=== PATIENT | female | born 1980 | race Caucasian/White ===

== ENCOUNTER 2023-11-28 16:49 | Emergency (ER) | payer OTHER ==
[2023-11-28 16:58] VITALS: BP 120/77; PULSE 80; RESP 20; TEMP 98.4; BMI 21.7
[2023-11-28 18:37] LABS: BASO % 0.5 % (0-2.0); EOS % 0.8 % (0-4.5); HEMATOCRIT 41.3 % (32.4-45.2); HEMOGLOBIN 14.3 GM/dL (10.7-15.3); LYMPH % 28.3 % (8-40); MCH 35.2 pg (25.7-33.7); MCHC 34.5 g/dl (32.0-36.0); MEAN PLT VOLUME 8.9 fl (7.5-11.1); MONO % 6.5 % (3.8-10.2); NEUT % 63.9 % (42.8-82.8); PLATELET COUNT 316 10^3/uL (134-434); RBC 4.05 M/mm3 (3.60-5.2); RDW 13.8 % (11.6-15.6); WHITE BLOOD COUNT 6.9 K/mm3 (4.0-10.0)
[2023-11-28] MEDS: SODIUM CHLORIDE 0.9% 500 ML INFUS.BAG IV ONE (18:59)
[2023-11-28 19:04] LABS: POTASSIUM 3.5 mmol/L (3.5-5.1)
[2023-11-28 19:04] LABS: EPI CELLS >36 /uL (0-25.1); HCG,QUALITATIVE URINE Negative; HYALINE CASTS 1 /uL (0-3.1); PH,URINE 6.5 (5.0-8.0); URINE APPEARANCE CLOUDY; URINE BACTERIA 3358 /uL (0-1359); URINE BILIRUBIN NEGATIVE (NEGATIVE); URINE COLOR YELLOW; URINE GLUCOSE (UA) NEGATIVE (NEGATIVE); URINE KETONE NEGATIVE (NEGATIVE); URINE LEUK ESTERASE 2+ (NEGATIVE); URINE NITRITE NEGATIVE (NEGATIVE); URINE PROTEIN NEGATIVE (NEGATIVE); URINE RBC 7 /uL (0-23.9); URINE WBC 190 /uL (0-25.8)
[2023-11-28 19:06] LABS: CALCIUM 8.8 mg/dL (8.5-10.1)
[2023-11-28 19:07] LABS: ALBUMIN 3.8 g/dl (3.4-5.0); BLOOD UREA NITROGEN 6.4 mg/dL (7-18)
[2023-11-28 19:09] LABS: COCAINE, UR NEGATIVE (NEGATIVE); OPIATES, URI NEGATIVE (NEGATIVE)
[2023-11-28 19:10] LABS: METHADONE, UR NEGATIVE (NEGATIVE); URINE BARBITURATES NEGATIVE (NEGATIVE)
[2023-11-28 19:11] LABS: PHENCYCLIDINE,URINE NEGATIVE (NEGATIVE); URINE AMPHETAMINES NEGATIVE (NEGATIVE); URINE BENZODIAZEPINES POSITIVE (NEGATIVE)
[2023-11-28 19:11] LABS: BILIRUBIN,TOTAL 0.6 mg/dL (0.2-1); CREATININE 0.6 mg/dL (0.55-1.3); TOT PROT 6.8 g/dl (6.4-8.2)
[2023-11-28 19:17] LABS: MAGNESIUM 2.1 mg/dL (1.8-2.4)
[2023-11-28] MEDS ORDERED: METOCLOPRAMIDE HCL INJECTION 10 MG/2 ML VIAL ONE (19:37)
[2023-11-28] MEDS ORDERED: CEFTRIAXONE 1 GM/50 ML BAG ONE (19:37)
[2023-11-28] MEDS: LORazepam 2 MG/ML SDV VIAL IM ONE (19:46)
[2023-11-28] MEDS: CEFTRIAXONE 1,000 MG in DEXTROSE 5%-WATER - 50 ML IVPB ONE (19:46)
[2023-11-28] MEDS: METOCLOPRAMIDE HCL INJECTION 10 MG/2 ML VIAL IVPB ONE (19:46)
== END 2023-11-28 20:40 | disposition home or self-care (01) ==
LOC: JER 16:49
PROC: 3E03329 Introduction of Other Anti-infective into Peripheral Vein, Percutaneous Approach (ICD-10-PCS; principal; 2023-11-28)
PROC: 3E030GC Introduction of Other Therapeutic Substance into Peripheral Vein, Open Approach (ICD-10-PCS; 2023-11-28)
PROC: 3E030GC Introduction of Other Therapeutic Substance into Peripheral Vein, Open Approach (ICD-10-PCS; 2023-11-28)
DX: F10.939 Alcohol use, unspecified with withdrawal, unspecified (principal); R56.9 Unspecified convulsions; R45.1 Restlessness and agitation; R11.2 Nausea with vomiting, unspecified; R44.0 Auditory hallucinations; R44.1 Visual hallucinations; R10.13 Epigastric pain; R06.02 Shortness of breath
CPT/HCPCS: 36415; 71046-TC-FY; 80053; 80307; 81003; 83690; 83735; 84484; 84703; 85025; 87086; 93005; 93010; 96365; 96375; 99285-25

== ENCOUNTER 2024-01-24 21:49 | Inpatient (IN) | payer OTHER ==
[2024-01-24] MEDS ORDERED: diazePAM CARPU-JECT 10 MG/2 ML DISP.SYRIN ONE (23:25)
[2024-01-24 23:55] LABS: BASO % 0.7 % (0-2.0); EOS % 2.9 % (0-4.5); HEMATOCRIT 39.6 % (32.4-45.2); HEMOGLOBIN 13.1 GM/dL (10.7-15.3); LYMPH % 42.4 % (8-40); MCH 34.8 pg (25.7-33.7); MCHC 33.2 g/dl (32.0-36.0); MEAN CELL VOLUME 104.9 fl (80-96); MEAN PLT VOLUME 7.9 fl (7.5-11.1); MONO % 9.1 % (3.8-10.2); NEUT % 44.9 % (42.8-82.8); PLATELET COUNT 217 10^3/uL (134-434); RBC 3.77 M/mm3 (3.60-5.2); RDW 13.6 % (11.6-15.6); WHITE BLOOD COUNT 5.5 K/mm3 (4.0-10.0)
[2024-01-24 23:56] LABS: EPI CELLS 21 /uL (0-25.1); HYALINE CASTS 0 /uL (0-3.1); PH,URINE 6.5 (5.0-8.0); URINE APPEARANCE CLEAR; URINE BACTERIA 492 /uL (0-1359); URINE BILIRUBIN NEGATIVE (NEGATIVE); URINE COLOR YELLOW; URINE GLUCOSE (UA) NEGATIVE (NEGATIVE); URINE KETONE NEGATIVE (NEGATIVE); URINE LEUK ESTERASE TRACE (NEGATIVE); URINE NITRITE NEGATIVE (NEGATIVE); URINE PROTEIN NEGATIVE (NEGATIVE); URINE RBC 5 /uL (0-23.9); URINE WBC 22 /uL (0-25.8)
[2024-01-24] MEDS: diazePAM CARPU-JECT 10 MG/2 ML DISP.SYRIN IVPUSH ONE (23:59)
[2024-01-24] MEDS: LACTATED RINGERS SOLUTION 1000 ML INFUS.BAG IV ONE ×2 (23:59)
[2024-01-25] MEDS ORDERED: FOLIC ACID 1 MG TABLET (FP) ONE
[2024-01-25] MEDS ORDERED: THIAMINE 100 MG TABLET ONE
[2024-01-25 00:01] LABS: INR 0.94 (0.83-1.09); PROTHROMBIN TIME (PATIENT) 10.6 SEC (9.7-13.0)
[2024-01-25 00:04] LABS: ACTIVATED PTT 32.7 SECONDS (25.2-36.5)
[2024-01-25] MEDS: FOLIC ACID 1 MG TABLET (FP) PO ONE (00:13)
[2024-01-25] MEDS: THIAMINE 100 MG TABLET PO ONE (00:13)
[2024-01-25 00:15] LABS: POTASSIUM 3.7 mmol/L (3.5-5.1)
[2024-01-25 00:18] LABS: CALCIUM 8.5 mg/dL (8.5-10.1)
[2024-01-25 00:19] LABS: MAGNESIUM 2.1 mg/dL (1.8-2.4)
[2024-01-25 00:22] LABS: CREATININE 0.5 mg/dL (0.55-1.3)
[2024-01-25 00:23] LABS: BILIRUBIN,TOTAL 0.5 mg/dL (0.2-1); TOT PROT 7.1 g/dl (6.4-8.2)
[2024-01-25 01:13] LABS: HIV INTERPRETATION NEGATIVE (NEGATIVE)
[2024-01-25] MEDS ORDERED: LORazepam 1 MG TABLET PO PRN (03:08)
[2024-01-25] MEDS ORDERED: LORazepam 1 MG TABLET PO ONE (03:08)
[2024-01-25] MEDS ORDERED: ONDANSETRON 4 MG/2 ML VIAL IVPUSH PRN (03:44)
[2024-01-25] MEDS: LORazepam 1 MG TABLET PO ONE (03:49)
[2024-01-25] MEDS: SODIUM CHLORIDE 1,000 ML IV SCH (03:50)
[2024-01-25] MEDS: SIMETHICONE 80 MG TAB.CHEW (FP) PO ONE (03:54)
[2024-01-25 05:09] VITALS: BMI 23.4
[2024-01-25] MEDS: LORazepam 0.5 MG TABLET PO SCH (06:02)
[2024-01-25] MEDS ORDERED: SIMETHICONE 80 MG TAB.CHEW (FP) PO PRN (07:45)
[2024-01-25 08:07] LABS: HEMATOCRIT 34.8 % (32.4-45.2); MCH 35.6 pg (25.7-33.7); MCHC 34.5 g/dl (32.0-36.0); MEAN CELL VOLUME 103.4 fl (80-96); MEAN PLT VOLUME 8.5 fl (7.5-11.1); PLATELET COUNT 188 10^3/uL (134-434); RBC 3.37 M/mm3 (3.60-5.2); RDW 13.7 % (11.6-15.6); WHITE BLOOD COUNT 4.7 K/mm3 (4.0-10.0)
[2024-01-25 08:23] LABS: POTASSIUM 3.7 mmol/L (3.5-5.1)
[2024-01-25 08:26] LABS: ALBUMIN 3.3 g/dl (3.4-5.0); BLOOD UREA NITROGEN 5.8 mg/dL (7-18); CALCIUM 8.2 mg/dL (8.5-10.1); MAGNESIUM 1.7 mg/dL (1.8-2.4)
[2024-01-25 08:29] LABS: CREATININE 0.4 mg/dL (0.55-1.3)
[2024-01-25 08:31] LABS: BILIRUBIN,TOTAL 0.7 mg/dL (0.2-1); TOT PROT 5.7 g/dl (6.4-8.2)
[2024-01-25] MEDS: THIAMINE HCL 200 MG/2 ML VIAL IVPB SCH (09:50)
[2024-01-25] MEDS: ENOXAPARIN NA (PORCINE) 40 MG/0.4 ML DISP.SYRIN SQ SCH (09:50)
[2024-01-25] MEDS: FOLIC ACID 1 MG TABLET (FP) PO SCH (09:50)
[2024-01-25] MEDS ORDERED: chlordiazePOXIDE HCL 25 MG CAPSULE PO PRN (10:32)
[2024-01-25] MEDS: chlordiazePOXIDE HCL 25 MG CAPSULE PO SCH (11:44)
[2024-01-25] MEDS: levETIRAcetam 250 MG TABLET PO SCH (11:46)
[2024-01-25] MEDS: MAGNESIUM 1GM/D5W 100ML - 100 ML IVPB IVPB ONE (11:46)
[2024-01-25] MEDS: MULTIVITAMINS (DAILY MVI) TABLET (FP) PO SCH (18:08)
[2024-01-25 18:49] VITALS: RESP 18
[2024-01-25] MEDS: THIAMINE 100 MG TABLET PO SCH (21:26)
[2024-01-26] MEDS ORDERED: LORazepam 1 MG TABLET PO SCH (05:00)
[2024-01-26] MEDS: FOLIC ACID 1 MG TABLET (FP) PO SCH (10:03)
[2024-01-26] MEDS: MAGNESIUM SULF 50% (8.12 MEQ/2 ML-1 GM VIAL) IVPB ONE (16:24)
[2024-01-27] MEDS ORDERED: LORazepam 0.5 MG TABLET PO PRN
[2024-01-27] MEDS: MELATONIN 1 MG TABLET PO ONE (04:01)
[2024-01-27] MEDS: chlordiazePOXIDE HCL 25 MG CAPSULE PO SCH (04:07)
[2024-01-27] MEDS ORDERED: LORazepam 0.5 MG TABLET PO SCH (05:00)
[2024-01-27 14:41] VITALS: BP 106/55; PULSE 58; TEMP 98
[2024-01-28] MEDS ORDERED: chlordiazePOXIDE HCL 10 MG CAPSULE PO PRN
[2024-01-28] MEDS ORDERED: LORazepam 0.5 MG TABLET PO ONE (05:00)
[2024-01-28] MEDS ORDERED: chlordiazePOXIDE HCL 10 MG CAPSULE PO SCH (05:00)
[2024-01-29] MEDS ORDERED: chlordiazePOXIDE HCL 10 MG CAPSULE PO SCH (05:00)
[2024-01-30] MEDS ORDERED: chlordiazePOXIDE HCL 10 MG CAPSULE PO ONE (05:00)
== END 2024-01-27 15:39 | disposition home or self-care (01) | DRG 775 ==
LOC: JER 21:49 → JERBED 01-25 01:57 → OBSVTOIN 01-25 03:03 → J4S 01-25 03:13
PROVIDERS: ADMIT Internal Medicine
DX: F10.230 Alcohol dependence with withdrawal, uncomplicated (principal); F10.220 Alcohol dependence with intoxication, uncomplicated; R55 Syncope and collapse; E83.42 Hypomagnesemia; R56.9 Unspecified convulsions
CPT/HCPCS: 0241U-QW; 36415; 70450-TC; 71045-TC-FY; 72125-TC; 80053; 80307; 81003; 82962; 83690; 83735; 84100; 84484; 84703; 85025; 85027; 85610; 85730; 87086; 87389; 93005; 93010; 99285-25; G0378

== ENCOUNTER 2024-01-31 12:49 | Inpatient (IN) | payer OTHER ==
[2024-01-31] MEDS ORDERED: chlordiazePOXIDE HCL 25 MG CAPSULE ONE (14:27)
[2024-01-31 14:31] LABS: BASO % 0.6 % (0-2.0); EOS % 1.7 % (0-4.5); HEMATOCRIT 35.5 % (32.4-45.2); HEMOGLOBIN 12.3 GM/dL (10.7-15.3); LYMPH % 28.2 % (8-40); MCH 35.3 pg (25.7-33.7); MCHC 34.6 g/dl (32.0-36.0); MONO % 9.3 % (3.8-10.2); NEUT % 60.2 % (42.8-82.8); PLATELET COUNT 179 10^3/uL (134-434); RBC 3.48 M/mm3 (3.60-5.2); RDW 13.3 % (11.6-15.6); WHITE BLOOD COUNT 6.2 K/mm3 (4.0-10.0)
[2024-01-31] MEDS: chlordiazePOXIDE HCL 25 MG CAPSULE PO ONE (14:33)
[2024-01-31 14:39] LABS: INR 0.88 (0.83-1.09); PROTHROMBIN TIME (PATIENT) 10.2 SEC (9.7-13.0)
[2024-01-31 14:41] LABS: ACTIVATED PTT 29.1 SECONDS (25.2-36.5)
[2024-01-31 14:51] LABS: POTASSIUM 4.2 mmol/L (3.5-5.1)
[2024-01-31 14:53] LABS: ALBUMIN 3.7 g/dl (3.4-5.0); BLOOD UREA NITROGEN 6.4 mg/dL (7-18); CALCIUM 9.1 mg/dL (8.5-10.1); MAGNESIUM 2.1 mg/dL (1.8-2.4)
[2024-01-31 14:56] LABS: CREATININE 0.6 mg/dL (0.55-1.3)
[2024-01-31 14:57] LABS: BILIRUBIN,TOTAL 0.4 mg/dL (0.2-1); PHOSPHOROUS 4.2 mg/dL (2.5-4.9); TOT PROT 6.8 g/dl (6.4-8.2)
[2024-01-31 15:09] LABS: LACTIC ACID 2.6 mmol/L (0.4-2.0)
[2024-01-31] MEDS ORDERED: FOLIC ACID INJECTION - 1 MG, THIAMINE HCL 100 MG, MULTIVIT INJECTION ADULT 10 ML in SOD... IVPB ONE (15:17)
[2024-01-31] MEDS: DEXTROSE 5%-LACTATED RINGERS 1,000 ML IV SCH (15:30)
[2024-01-31] MEDS: chlordiazePOXIDE HCL 25 MG CAPSULE PO SCH (21:51)
[2024-01-31] MEDS: levETIRAcetam 250 MG TABLET PO SCH (21:51)
[2024-01-31] MEDS: HEPARIN NA (PORCINE) 5,000 UNITS/ML 1ML VIAL SQ SCH (21:57)
[2024-02-01 03:30] VITALS: BMI 25.7
[2024-02-01 06:41] VITALS: RESP 18
[2024-02-01 07:34] LABS: BASO % 0.5 % (0-2.0); EOS % 2.5 % (0-4.5); HEMATOCRIT 33.2 % (32.4-45.2); HEMOGLOBIN 11.2 GM/dL (10.7-15.3); LYMPH % 38.3 % (8-40); MCH 34.9 pg (25.7-33.7); MCHC 33.6 g/dl (32.0-36.0); MEAN CELL VOLUME 103.8 fl (80-96); MEAN PLT VOLUME 9.6 fl (7.5-11.1); MONO % 11.3 % (3.8-10.2); NEUT % 47.4 % (42.8-82.8); PLATELET COUNT 151 10^3/uL (134-434); RDW 12.5 % (11.6-15.6); WHITE BLOOD COUNT 5.6 K/mm3 (4.0-10.0)
[2024-02-01 07:40] LABS: POTASSIUM 3.3 mmol/L (3.5-5.1)
[2024-02-01 07:42] LABS: CALCIUM 8.1 mg/dL (8.5-10.1)
[2024-02-01 07:46] LABS: CREATININE 0.5 mg/dL (0.55-1.3)
[2024-02-01] MEDS: chlordiazePOXIDE HCL 25 MG CAPSULE PO PRN (08:51)
[2024-02-01] MEDS: POTASSIUM CHLORIDE ORAL LIQUID 20 MEQ/15 ML PO ONE ×2 (09:32→11:08)
[2024-02-01] MEDS: THIAMINE 100 MG TABLET PO SCH (09:32)
[2024-02-01] MEDS: FOLIC ACID 1 MG TABLET (FP) PO SCH (09:33)
[2024-02-01] MEDS: MULTIVITAMINS (DAILY MVI) TABLET (FP) PO SCH (09:33)
[2024-02-01] MEDS ORDERED: SODIUM CHLORIDE 1,000 ML IV SCH (14:00)
[2024-02-01 15:15] VITALS: BP 121/53; PULSE 87; TEMP 98.1
[2024-02-01 17:56] LABS: LACTIC ACID 2.1 mmol/L (0.4-2.0)
== END 2024-02-01 17:12 | disposition left against medical advice (07) | DRG 770 ==
LOC: JER 12:49 → JERBED 16:57 → J4W 20:38
PROVIDERS: ADMIT Internal Medicine; ATTEND Internal Medicine
DX: F10.230 Alcohol dependence with withdrawal, uncomplicated (principal); R56.9 Unspecified convulsions; E87.21 Acute metabolic acidosis; Y90.7 Blood alcohol level of 200-239 mg/100 ml
CPT/HCPCS: 36415; 70450-TC; 72125-TC; 80048; 80053; 80307; 82962; 83605; 83735; 84100; 84703; 85025; 85610; 85730; 86850; 86900; 86901; 93005; 93010; 99285-25; J1644

== ENCOUNTER 2024-02-10 21:33 | Emergency (ER) | payer OTHER ==
[2024-02-10 21:37] VITALS: BMI 23.4
[2024-02-10 22:23] LABS: BASO % 0.9 % (0-2.0); EOS % 2.9 % (0-4.5); HEMATOCRIT 38.2 % (32.4-45.2); HEMOGLOBIN 13.2 GM/dL (10.7-15.3); LYMPH % 39.8 % (8-40); MCH 35.4 pg (25.7-33.7); MCHC 34.6 g/dl (32.0-36.0); MEAN CELL VOLUME 102.4 fl (80-96); MEAN PLT VOLUME 7.7 fl (7.5-11.1); MONO % 7.8 % (3.8-10.2); NEUT % 48.6 % (42.8-82.8); PLATELET COUNT 297 10^3/uL (134-434); RBC 3.73 M/mm3 (3.60-5.2); RDW 13.4 % (11.6-15.6); WHITE BLOOD COUNT 6.4 K/mm3 (4.0-10.0)
[2024-02-10] MEDS ORDERED: MAG HYDROX/AL HYDROX/SIMETH 30 ML UNIT-DOSE CUP ONE (22:33)
[2024-02-10] MEDS ORDERED: FAMOTIDINE 20 MG/50 ML IVPB 20 MG/50 ML MG IVPB ONE (22:33)
[2024-02-10] MEDS: FAMOTIDINE 20 MG/50 ML IVPB 20 MG/50 ML MG IVPB ONE (22:38)
[2024-02-10] MEDS: LACTATED RINGERS SOLUTION 1,000 ML/1,000 ML INFUS.BAG IV SCH (22:38)
[2024-02-10] MEDS: MAG HYDROX/AL HYDROX/SIMETH 30 ML UNIT-DOSE CUP PO ONE (22:38)
[2024-02-10 22:41] LABS: POTASSIUM 3.4 mmol/L (3.5-5.1)
[2024-02-10 22:43] LABS: CALCIUM 8.9 mg/dL (8.5-10.1)
[2024-02-10 22:44] LABS: BLOOD UREA NITROGEN 4.4 mg/dL (7-18); MAGNESIUM 2.3 mg/dL (1.8-2.4)
[2024-02-10 22:47] LABS: CREATININE 0.7 mg/dL (0.55-1.3); PHOSPHOROUS 3.2 mg/dL (2.5-4.9)
[2024-02-10 22:49] LABS: BILIRUBIN,TOTAL 0.4 mg/dL (0.2-1)
[2024-02-11 00:13] VITALS: TEMP 97.3
[2024-02-11 00:15] LABS: PH,URINE 7.5 (5.0-8.0); URINE APPEARANCE CLEAR; URINE BILIRUBIN NEGATIVE (NEGATIVE); URINE COLOR YELLOW; URINE GLUCOSE (UA) NEGATIVE (NEGATIVE); URINE KETONE NEGATIVE (NEGATIVE); URINE LEUK ESTERASE NEGATIVE (NEGATIVE); URINE NITRITE NEGATIVE (NEGATIVE); URINE PROTEIN NEGATIVE (NEGATIVE); URINE UROBILINOGEN 0.2 mg/dL (0.2-1.0)
[2024-02-11] MEDS: SODIUM CHLORIDE 1,000 ML IV STA (02:03)
[2024-02-11 03:12] VITALS: BP 107/64; PULSE 60; RESP 16
== END 2024-02-11 06:22 | disposition home or self-care (01) ==
LOC: JER 21:33
PROC: 3E033GC Introduction of Other Therapeutic Substance into Peripheral Vein, Percutaneous Approach (ICD-10-PCS; principal; 2024-02-10)
PROC: 3E033GC Introduction of Other Therapeutic Substance into Peripheral Vein, Percutaneous Approach (ICD-10-PCS; 2024-02-10)
PROC: 3E0337Z Introduction of Electrolytic and Water Balance Substance into Peripheral Vein, Percutaneous Approach (ICD-10-PCS; 2024-02-11)
DX: R10.31 Right lower quadrant pain (principal); R10.32 Left lower quadrant pain; R10.13 Epigastric pain; R19.7 Diarrhea, unspecified; R11.0 Nausea
CPT/HCPCS: 36415; 74177-TC; 80053; 81003; 83690; 83735; 84100; 84703; 85025; 87086; 93005; 93010; 99285-25; Q9967

== ENCOUNTER 2024-02-22 17:57 | Observation (INO) | payer OTHER ==
[2024-02-22 18:22] VITALS: RESP 18; BMI 23.2
[2024-02-22] MEDS ORDERED: chlordiazePOXIDE HCL 25 MG CAPSULE ONE (19:38)
[2024-02-22] MEDS: chlordiazePOXIDE HCL 25 MG CAPSULE PO ONE (19:43)
[2024-02-22 21:57] LABS: BASO % 0.8 % (0-2.0); EOS % 3.1 % (0-4.5); HEMATOCRIT 42.9 % (32.4-45.2); HEMOGLOBIN 14.3 GM/dL (10.7-15.3); LYMPH % 45.7 % (8-40); MCH 34.6 pg (25.7-33.7); MCHC 33.2 g/dl (32.0-36.0); MEAN PLT VOLUME 8.1 fl (7.5-11.1); MONO % 8.5 % (3.8-10.2); NEUT % 41.9 % (42.8-82.8); PLATELET COUNT 197 10^3/uL (134-434); RBC 4.12 M/mm3 (3.60-5.2); RDW 13.6 % (11.6-15.6); WHITE BLOOD COUNT 4.9 K/mm3 (4.0-10.0)
[2024-02-22 22:15] LABS: PH,URINE 7.5 (5.0-8.0); URINE APPEARANCE CLEAR; URINE BILIRUBIN NEGATIVE (NEGATIVE); URINE COLOR YELLOW; URINE GLUCOSE (UA) NEGATIVE (NEGATIVE); URINE KETONE NEGATIVE (NEGATIVE); URINE LEUK ESTERASE NEGATIVE (NEGATIVE); URINE NITRITE NEGATIVE (NEGATIVE); URINE PROTEIN NEGATIVE (NEGATIVE); URINE UROBILINOGEN 0.2 mg/dL (0.2-1.0)
[2024-02-22] MEDS ORDERED: chlordiazePOXIDE HCL 25 MG CAPSULE PO PRN (23:43)
[2024-02-22 23:44] LABS: POTASSIUM 3.4 mmol/L (3.5-5.1)
[2024-02-22 23:46] LABS: CALCIUM 9.2 mg/dL (8.5-10.1)
[2024-02-22 23:47] LABS: BLOOD UREA NITROGEN 8.5 mg/dL (7-18)
[2024-02-22 23:50] LABS: CREATININE 0.6 mg/dL (0.55-1.3)
[2024-02-22 23:53] LABS: BILIRUBIN,TOTAL 0.8 mg/dL (0.2-1); TOT PROT 8.3 g/dl (6.4-8.2)
[2024-02-22] MEDS: chlordiazePOXIDE HCL 25 MG CAPSULE PO SCH (23:56)
[2024-02-23] MEDS ORDERED: levETIRAcetam 500 MG TABLET (FP) PO ONE (00:03)
[2024-02-23] MEDS: levETIRAcetam 250 MG TABLET PO SCH (00:06)
[2024-02-23] MEDS ORDERED: POTASSIUM CHLORIDE ORAL LIQUID 20 MEQ/15 ML ONE (01:05)
[2024-02-23] MEDS: POTASSIUM CHLORIDE ORAL LIQUID 20 MEQ/15 ML PO ONE (01:12)
[2024-02-23] MEDS: FOLIC ACID INJECTION - 1 MG, THIAMINE HCL 100 MG, MULTIVIT INJECTION ADULT 10 ML in SOD... IVPB ONE (03:03)
[2024-02-23] MEDS: SODIUM CHLORIDE 1,000 ML IV SCH (04:20)
[2024-02-23 10:07] LABS: HEMATOCRIT 36.8 % (32.4-45.2); HEMOGLOBIN 12.2 GM/dL (10.7-15.3); MCH 34.6 pg (25.7-33.7); MEAN CELL VOLUME 104.6 fl (80-96); MEAN PLT VOLUME 8.2 fl (7.5-11.1); PLATELET COUNT 154 10^3/uL (134-434); RBC 3.52 M/mm3 (3.60-5.2); RDW 13.6 % (11.6-15.6); WHITE BLOOD COUNT 4.2 K/mm3 (4.0-10.0)
[2024-02-23 10:23] LABS: POTASSIUM 3.5 mmol/L (3.5-5.1)
[2024-02-23 10:27] LABS: BLOOD UREA NITROGEN 10.2 mg/dL (7-18); CALCIUM 7.9 mg/dL (8.5-10.1); MAGNESIUM 1.8 mg/dL (1.8-2.4)
[2024-02-23 10:30] LABS: CREATININE 0.6 mg/dL (0.55-1.3); PHOSPHOROUS 3.3 mg/dL (2.5-4.9)
[2024-02-23 10:32] LABS: BILIRUBIN,TOTAL 1.1 mg/dL (0.2-1)
[2024-02-23] MEDS: ENOXAPARIN NA (PORCINE) 40 MG/0.4 ML DISP.SYRIN SQ SCH (11:00)
[2024-02-23 11:01] LABS: ALBUMIN 3.6 g/dl (3.4-5.0)
[2024-02-23] MEDS: THIAMINE 100 MG TABLET PO SCH (11:04)
[2024-02-23 12:55] LABS: OPIATES, URI NEGATIVE (NEGATIVE)
[2024-02-23 12:56] LABS: PHENCYCLIDINE,URINE NEGATIVE (NEGATIVE); URINE BARBITURATES NEGATIVE (NEGATIVE); URINE BENZODIAZEPINES NEGATIVE (NEGATIVE)
[2024-02-23 13:06] LABS: COCAINE, UR NEGATIVE (NEGATIVE); METHADONE, UR NEGATIVE (NEGATIVE); URINE AMPHETAMINES NEGATIVE (NEGATIVE)
[2024-02-23] MEDS: SODIUM CHLORIDE 500 ML IV STA (13:17)
[2024-02-23] MEDS: NALTREXONE HCL 50 MG TABLET PO SCH (13:17)
[2024-02-23 13:57] VITALS: BP 112/72; PULSE 72; TEMP 97.9
[2024-02-24] MEDS ORDERED: chlordiazePOXIDE HCL 25 MG CAPSULE PO SCH (05:00)
[2024-02-25] MEDS ORDERED: chlordiazePOXIDE HCL 10 MG CAPSULE PO PRN
[2024-02-25] MEDS ORDERED: chlordiazePOXIDE HCL 10 MG CAPSULE PO SCH (05:00)
[2024-02-26] MEDS ORDERED: chlordiazePOXIDE HCL 10 MG CAPSULE PO SCH (05:00)
[2024-02-27] MEDS ORDERED: chlordiazePOXIDE HCL 10 MG CAPSULE PO ONE (05:00)
== END 2024-02-23 17:20 | disposition left against medical advice (07) ==
LOC: JER 17:57 → J5S 23:43 → UNDOADMOB 02-23 00:30 → JERBED 02-23 00:30 → INTOOBSV 02-23 00:30 → J5S 02-23 02:29 → JERBED 02-23 02:29 → J5S 02-23 07:28
PROVIDERS: ADMIT Internal Medicine; ATTEND Student in an Organized Health Care Education/Training Program
PROC: 3E023GC Introduction of Other Therapeutic Substance into Muscle, Percutaneous Approach (ICD-10-PCS; principal; 2024-02-22)
PROC: 3E033GC Introduction of Other Therapeutic Substance into Peripheral Vein, Percutaneous Approach (ICD-10-PCS; 2024-02-22)
PROC: 3E033NZ Introduction of Analgesics, Hypnotics, Sedatives into Peripheral Vein, Percutaneous Approach (ICD-10-PCS; 2024-02-22)
PROC: 3E0337Z Introduction of Electrolytic and Water Balance Substance into Peripheral Vein, Percutaneous Approach (ICD-10-PCS; 2024-02-22)
DX: F10.930 Alcohol use, unspecified with withdrawal, uncomplicated (principal); G40.909 Epilepsy, unspecified, not intractable, without status epilepticus; F17.200 Nicotine dependence, unspecified, uncomplicated
CPT/HCPCS: 36415; 70551-TC; 80053; 80307; 81003; 82607; 82962; 83690; 83735; 84100; 84703; 85025; 85027; 87086; 93005; 93010; 96361; 96365; 96372; 96375; 99285-25; G0378

== ENCOUNTER 2024-03-09 06:23 | Inpatient (IN) | payer OTHER ==
[2024-03-09 06:59] VITALS: BMI 24.6
[2024-03-09] MEDS ORDERED: ACETAMINOPHEN 325 MG TABLET (FP) PO PRN (08:56)
[2024-03-09] MEDS ORDERED: ONDANSETRON *ODT* 4 MG TABLET SL PRN (08:56)
[2024-03-09] MEDS ORDERED: IBUPROFEN 400 MG TABLET (FP) PO PRN (08:56)
[2024-03-09] MEDS ORDERED: MAGNESIUM HYDROX 2400MG/30ML ORAL SUSPENSION 30 ML CUP PO PRN (08:56)
[2024-03-09] MEDS ORDERED: LOPERAMIDE HCL 2 MG CAPSULE PO PRN (08:56)
[2024-03-09] MEDS ORDERED: levETIRAcetam 500 MG TABLET (FP) PO ONE (10:03)
[2024-03-09] MEDS ORDERED: chlordiazePOXIDE HCL 25 MG CAPSULE ONE (10:03)
[2024-03-09] MEDS ORDERED: PRENATAL VITAMINS W/ FOLIC ACID TABLET (FP) PO ONE (10:03)
[2024-03-09] MEDS: chlordiazePOXIDE HCL 25 MG CAPSULE PO SCH (10:12)
[2024-03-09] MEDS: levETIRAcetam 500 MG TABLET (FP) PO SCH (10:13)
[2024-03-09] MEDS: PRENATAL VITAMINS W/ FOLIC ACID TABLET (FP) PO SCH (10:13)
[2024-03-09] MEDS: THIAMINE 100 MG TABLET PO SCH (10:13)
[2024-03-09] MEDS: hydrOXYzine PAMOATE 25 MG CAPSULE (FP) PO PRN (14:32)
[2024-03-09] MEDS: METHOCARBAMOL 500 MG TABLET PO PRN (14:32)
[2024-03-09] MEDS: chlordiazePOXIDE HCL 25 MG CAPSULE PO PRN (20:34)
[2024-03-09] MEDS: MELATONIN 5 MG TABLETS PO SCH (22:20)
[2024-03-09] MEDS: DICYCLOMINE HCL 10 MG CAPSULE PO PRN (22:24)
[2024-03-10 11:23] LABS: POTASSIUM 3.9 mmol/L (3.5-5.1)
[2024-03-10 11:25] LABS: HEMATOCRIT 37.9 % (32.4-45.2); MCH 35.3 pg (25.7-33.7); MCHC 34.2 g/dl (32.0-36.0); MEAN CELL VOLUME 103.2 fl (80-96); MEAN PLT VOLUME 8.9 fl (7.5-11.1); PLATELET COUNT 153 10^3/uL (134-434); RBC 3.67 M/mm3 (3.60-5.2); RDW 13.7 % (11.6-15.6)
[2024-03-10 11:30] LABS: ALBUMIN 3.7 g/dl (3.4-5.0); BLOOD UREA NITROGEN 10.8 mg/dL (7-18)
[2024-03-10 11:31] LABS: CALCIUM 9.2 mg/dL (8.5-10.1)
[2024-03-10 11:32] LABS: CREATININE 0.6 mg/dL (0.55-1.3)
[2024-03-10 11:35] LABS: BILIRUBIN,TOTAL 1.6 mg/dL (0.2-1); TOT PROT 6.2 g/dl (6.4-8.2)
[2024-03-10 17:12] VITALS: BP 112/75; PULSE 61; RESP 18; TEMP 97.7
[2024-03-11] MEDS ORDERED: chlordiazePOXIDE HCL 25 MG CAPSULE PO SCH (05:00)
[2024-03-12] MEDS ORDERED: chlordiazePOXIDE HCL 10 MG CAPSULE PO PRN
[2024-03-12] MEDS ORDERED: chlordiazePOXIDE HCL 10 MG CAPSULE PO SCH (05:00)
[2024-03-13] MEDS ORDERED: chlordiazePOXIDE HCL 10 MG CAPSULE PO SCH (05:00)
[2024-03-14] MEDS ORDERED: chlordiazePOXIDE HCL 10 MG CAPSULE PO ONE (05:00)
== END 2024-03-10 19:12 | disposition left against medical advice (07) | DRG 770 ==
LOC: YASAS 06:23 → Y3N 09:40
PROVIDERS: ADMIT Allergy & Immunology; ATTEND Allergy & Immunology
PROC: HZ2ZZZZ Detoxification Services for Substance Abuse Treatment (ICD-10-PCS; principal; 2024-03-09)
DX: F10.230 Alcohol dependence with withdrawal, uncomplicated (principal); F13.20 Sedative, hypnotic or anxiolytic dependence, uncomplicated; F12.20 Cannabis dependence, uncomplicated; Z86.69 Personal history of other diseases of the nervous system and sense organs; Z87.891 Personal history of nicotine dependence
CPT/HCPCS: 0241U-QW; 36415; 71045-TC-FY; 80053; 80305; 80307; 81025; 83690; 83735; 84484; 84703; 85025; 85027; 86780; 86803; 93005; 93010; J0131

== ENCOUNTER 2024-06-30 17:30 | Inpatient (IN) | payer OTHER ==
[2024-06-30 18:02] VITALS: BMI 22.0
[2024-06-30] MEDS ORDERED: BISMUTH SUBSALICYLATE 524 MG/30 ML PO PRN (18:16)
[2024-06-30] MEDS ORDERED: IBUPROFEN 600 MG TABLET (FP) PO PRN (18:16)
[2024-06-30] MEDS ORDERED: MAG HYDROX/AL HYDROX/SIMETH 30 ML UNIT-DOSE CUP PO PRN (18:16)
[2024-06-30] MEDS ORDERED: ACETAMINOPHEN 325 MG TABLET (FP) PO PRN (18:16)
[2024-06-30] MEDS ORDERED: BENZOCAINE/MENTHOL (CHLORASEPTIC ) LOZENGE MM PRN (18:16)
[2024-06-30] MEDS ORDERED: IBUPROFEN 400 MG TABLET (FP) PO PRN (18:16)
[2024-06-30] MEDS ORDERED: MAGNESIUM HYDROX 2400MG/30ML ORAL SUSPENSION 30 ML CUP PO PRN (18:16)
[2024-06-30] MEDS ORDERED: BENZONATATE 200 MG CAPSULE PO PRN (18:16)
[2024-06-30] MEDS ORDERED: guaiFENesin 600 MG TABLET.ER (FP) PO PRN (18:16)
[2024-06-30] MEDS ORDERED: LOPERAMIDE HCL 2 MG CAPSULE PO PRN (18:16)
[2024-06-30] MEDS ORDERED: POLYETHYLENE GLYCOL (HEALTHYLAX) 3350 17 GM PACKET PO PRN (18:16)
[2024-06-30] MEDS ORDERED: chlordiazePOXIDE HCL 25 MG CAPSULE ONE (18:22)
[2024-06-30] MEDS ORDERED: levETIRAcetam 500 MG TABLET (FP) PO ONE (18:22)
[2024-06-30] MEDS: levETIRAcetam 250 MG TABLET PO SCH (18:27)
[2024-06-30] MEDS: chlordiazePOXIDE HCL 25 MG CAPSULE PO ONE (18:27)
[2024-06-30] MEDS: ONDANSETRON *ODT* 4 MG TABLET SL PRN (18:28)
[2024-06-30] MEDS ORDERED: ONDANSETRON *ODT* 4 MG TABLET ONE (18:32)
[2024-06-30] MEDS: MELATONIN 5 MG TABLETS PO SCH (22:25)
[2024-06-30] MEDS: THIAMINE 100 MG TABLET PO SCH (22:25)
[2024-06-30] MEDS: levETIRAcetam 500 MG TABLET (FP) PO SCH (22:25)
[2024-06-30] MEDS: chlordiazePOXIDE HCL 25 MG CAPSULE PO SCH (22:25)
[2024-07-01] MEDS: chlordiazePOXIDE HCL 25 MG CAPSULE PO PRN (02:03)
[2024-07-01] MEDS: METHOCARBAMOL 500 MG TABLET PO PRN (09:26)
[2024-07-01] MEDS: PRENATAL VITAMINS W/ FOLIC ACID TABLET (FP) PO SCH (09:27)
[2024-07-01 11:34] LABS: HEMATOCRIT 38.7 % (32.4-45.2); HEMOGLOBIN 13.3 GM/dL (10.7-15.3); MCHC 34.4 g/dl (32.0-36.0); MEAN CELL VOLUME 101.7 fl (80-96); MEAN PLT VOLUME 9.1 fl (7.5-11.1); PLATELET COUNT 128 10^3/uL (134-434); RBC 3.81 M/mm3 (3.60-5.2); RDW 15.3 % (11.6-15.6); WHITE BLOOD COUNT 4.7 K/mm3 (4.0-10.0)
[2024-07-01 11:35] LABS: POTASSIUM 3.8 mmol/L (3.5-5.1)
[2024-07-01 11:39] LABS: ALBUMIN 4.2 g/dl (3.4-5.0); CALCIUM 8.7 mg/dL (8.5-10.1)
[2024-07-01 11:40] LABS: BLOOD UREA NITROGEN 13.6 mg/dL (7-18)
[2024-07-01 11:43] LABS: CREATININE 0.6 mg/dL (0.55-1.3)
[2024-07-01] MEDS: DICYCLOMINE HCL 10 MG CAPSULE PO PRN (12:03)
[2024-07-01] MEDS ORDERED: LORazepam 1 MG TABLET PO PRN (12:43)
[2024-07-01] MEDS: LORazepam 2 MG TABLET PO SCH (17:21)
[2024-07-02] MEDS ORDERED: chlordiazePOXIDE HCL 25 MG CAPSULE PO SCH (05:00)
[2024-07-03] MEDS ORDERED: chlordiazePOXIDE HCL 10 MG CAPSULE PO PRN
[2024-07-03] MEDS ORDERED: chlordiazePOXIDE HCL 10 MG CAPSULE PO SCH (05:00)
[2024-07-03] MEDS: LORazepam 1 MG TABLET PO SCH (05:42)
[2024-07-03 14:04] VITALS: BP 118/86; PULSE 80; RESP 18; TEMP 97.6
[2024-07-04] MEDS ORDERED: LORazepam 0.5 MG TABLET PO PRN
[2024-07-04] MEDS ORDERED: LORazepam 0.5 MG TABLET PO SCH (05:00)
[2024-07-04] MEDS ORDERED: chlordiazePOXIDE HCL 10 MG CAPSULE PO SCH (05:00)
[2024-07-05] MEDS ORDERED: chlordiazePOXIDE HCL 10 MG CAPSULE PO ONE (05:00)
[2024-07-05] MEDS ORDERED: LORazepam 0.5 MG TABLET PO ONE (05:00)
== END 2024-07-03 13:25 | disposition home or self-care (01) | DRG 775 ==
LOC: YASAS 17:30 → Y6N 18:32
PROVIDERS: ADMIT Neuromusculoskeletal Medicine & OMM; ATTEND Neuromusculoskeletal Medicine & OMM
PROC: HZ2ZZZZ Detoxification Services for Substance Abuse Treatment (ICD-10-PCS; principal; 2024-06-30)
DX: F10.230 Alcohol dependence with withdrawal, uncomplicated (principal); F10.280 Alcohol dependence with alcohol-induced anxiety disorder; F10.282 Alcohol dependence with alcohol-induced sleep disorder; R56.9 Unspecified convulsions; R74.01 Elevation of levels of liver transaminase levels; Z86.69 Personal history of other diseases of the nervous system and sense organs
CPT/HCPCS: 36415; 80053; 80305; 80307; 81025; 84450; 85027; 86780; 93005; 93010; Q0162

== ENCOUNTER 2024-07-16 21:54 | Emergency (ER) | payer OTHER ==
[2024-07-16 22:13] VITALS: BP 133/62; PULSE 88; RESP 17; TEMP 98.4; BMI 22.4
[2024-07-16] MEDS ORDERED: levETIRAcetam 500 MG/5 ML INJECTION VIAL IVPB ONE (22:42)
[2024-07-16] MEDS ORDERED: diazePAM CARPU-JECT 10 MG/2 ML DISP.SYRIN ONE (22:42)
[2024-07-16] MEDS: levETIRAcetam 500 MG/5 ML INJECTION VIAL IVPB ONE (23:00)
[2024-07-16] MEDS: diazePAM CARPU-JECT 10 MG/2 ML DISP.SYRIN IVPUSH ONE (23:10)
[2024-07-16 23:15] LABS: BASO % 1.5 % (0-2.0); EOS % 0.1 % (0-4.5); HEMATOCRIT 47.4 % (32.4-45.2); HEMOGLOBIN 16.2 GM/dL (10.7-15.3); LYMPH % 29.2 % (8-40); MCH 34.7 pg (25.7-33.7); MCHC 34.3 g/dl (32.0-36.0); MEAN CELL VOLUME 101.1 fl (80-96); MEAN PLT VOLUME 7.8 fl (7.5-11.1); MONO % 5.6 % (3.8-10.2); NEUT % 63.6 % (42.8-82.8); PLATELET COUNT 275 10^3/uL (134-434); RBC 4.68 M/mm3 (3.60-5.2); RDW 15.2 % (11.6-15.6); WHITE BLOOD COUNT 6.4 K/mm3 (4.0-10.0)
[2024-07-16 23:23] LABS: INR 0.94 (0.83-1.09); PROTHROMBIN TIME (PATIENT) 10.8 SEC (9.7-13.0)
[2024-07-16 23:26] LABS: ACTIVATED PTT 31.6 SECONDS (25.2-36.5)
[2024-07-16 23:56] LABS: ALBUMIN 4.4 g/dl (3.4-5.0); BLOOD UREA NITROGEN 10.1 mg/dL (7-18)
[2024-07-16 23:59] LABS: CREATININE 0.8 mg/dL (0.55-1.3)
[2024-07-17] LABS: BILIRUBIN,TOTAL 0.8 mg/dL (0.2-1); TOT PROT 8.2 g/dl (6.4-8.2)
[2024-07-17] MEDS ORDERED: diazePAM CARPU-JECT 10 MG/2 ML DISP.SYRIN ONE ×2 (02:51→06:05)
[2024-07-17] MEDS: diazePAM CARPU-JECT 10 MG/2 ML DISP.SYRIN IVPUSH ONE ×2 (02:59→06:34)
[2024-07-17] MEDS: diazePAM 5 MG TABLET PO ONE (06:05)
== END 2024-07-17 06:26 | disposition home or self-care (01) ==
LOC: JER 21:54
PROC: 3E033GC Introduction of Other Therapeutic Substance into Peripheral Vein, Percutaneous Approach (ICD-10-PCS; principal; 2024-07-17)
PROC: 3E033GC Introduction of Other Therapeutic Substance into Peripheral Vein, Percutaneous Approach (ICD-10-PCS; 2024-07-17)
PROC: 3E033GC Introduction of Other Therapeutic Substance into Peripheral Vein, Percutaneous Approach (ICD-10-PCS; 2024-07-17)
DX: F10.230 Alcohol dependence with withdrawal, uncomplicated (principal); G40.909 Epilepsy, unspecified, not intractable, without status epilepticus; M54.2 Cervicalgia; R51.9 Headache, unspecified
CPT/HCPCS: 36415; 70450-TC; 72125-TC; 80053; 80307; 82140; 83690; 83735; 84703; 85025; 85610; 85730; 96374; 96375; 96376; 99284-25

== ENCOUNTER 2024-07-17 06:59 | Inpatient (IN) | payer OTHER ==
[2024-07-17 07:26] VITALS: BMI 22.6
[2024-07-17] MEDS ORDERED: MAG HYDROX/AL HYDROX/SIMETH 30 ML UNIT-DOSE CUP PO PRN (09:00)
[2024-07-17] MEDS ORDERED: IBUPROFEN 400 MG TABLET (FP) PO PRN (09:00)
[2024-07-17] MEDS ORDERED: LOPERAMIDE HCL 2 MG CAPSULE PO PRN (09:00)
[2024-07-17] MEDS ORDERED: BISMUTH SUBSALICYLATE 262 MG/15 ML BTL PO PRN (09:00)
[2024-07-17] MEDS ORDERED: BENZONATATE 200 MG CAPSULE PO PRN (09:00)
[2024-07-17] MEDS ORDERED: guaiFENesin 600 MG TABLET.ER (FP) PO PRN (09:00)
[2024-07-17] MEDS ORDERED: POLYETHYLENE GLYCOL (HEALTHYLAX) 3350 17 GM PACKET PO PRN (09:00)
[2024-07-17] MEDS ORDERED: BENZOCAINE/MENTHOL (CHLORASEPTIC ) LOZENGE MM PRN (09:00)
[2024-07-17] MEDS ORDERED: propRANOLol HCL 10 MG TABLET ONE (09:12)
[2024-07-17] MEDS ORDERED: PRENATAL VITAMINS W/ FOLIC ACID TABLET (FP) PO ONE (09:12)
[2024-07-17] MEDS ORDERED: levETIRAcetam 500 MG TABLET (FP) PO ONE (09:12)
[2024-07-17] MEDS ORDERED: chlordiazePOXIDE HCL 25 MG CAPSULE ONE ×2 (09:12→11:13)
[2024-07-17] MEDS: chlordiazePOXIDE HCL 25 MG CAPSULE PO ONE (09:22)
[2024-07-17] MEDS: levETIRAcetam 500 MG TABLET (FP) PO SCH (09:22)
[2024-07-17] MEDS: propRANOLol HCL 10 MG TABLET PO ONE (09:22)
[2024-07-17] MEDS: PRENATAL VITAMINS W/ FOLIC ACID TABLET (FP) PO SCH (09:22)
[2024-07-17] MEDS ORDERED: ONDANSETRON *ODT* 4 MG TABLET ONE (09:41)
[2024-07-17] MEDS: ONDANSETRON *ODT* 4 MG TABLET SL PRN (09:44)
[2024-07-17] MEDS ORDERED: IBUPROFEN 600 MG TABLET (FP) PO ONE (10:05)
[2024-07-17] MEDS: IBUPROFEN 600 MG TABLET (FP) PO PRN (10:07)
[2024-07-17] MEDS: chlordiazePOXIDE HCL 25 MG CAPSULE PO SCH (11:18)
[2024-07-17] MEDS: chlordiazePOXIDE HCL 25 MG CAPSULE PO PRN (14:34)
[2024-07-17] MEDS: DICYCLOMINE HCL 10 MG CAPSULE PO PRN (14:34)
[2024-07-17] MEDS: MAGNESIUM HYDROX 2400MG/30ML ORAL SUSPENSION 30 ML CUP PO PRN (17:56)
[2024-07-17] MEDS: THIAMINE 100 MG TABLET PO SCH (21:18)
[2024-07-17] MEDS: hydrOXYzine PAMOATE 25 MG CAPSULE (FP) PO PRN (21:18)
[2024-07-17] MEDS: MELATONIN 5 MG TABLETS PO SCH (22:35)
[2024-07-19] MEDS: METHOCARBAMOL 500 MG TABLET PO PRN (02:28)
[2024-07-19] MEDS: chlordiazePOXIDE HCL 25 MG CAPSULE PO SCH (05:17)
[2024-07-19 09:36] VITALS: RESP 18
[2024-07-19 13:11] VITALS: BP 100/71; PULSE 85; TEMP 97.6
[2024-07-19] MEDS: NALOXONE (NYS OPIOID OVERDOSE PROGRAM) 4 MG/0.1 ML SPRAY NS ONE (16:40)
[2024-07-20] MEDS ORDERED: chlordiazePOXIDE HCL 10 MG CAPSULE PO PRN
[2024-07-20] MEDS ORDERED: chlordiazePOXIDE HCL 10 MG CAPSULE PO SCH (05:00)
[2024-07-21] MEDS ORDERED: chlordiazePOXIDE HCL 10 MG CAPSULE PO SCH (05:00)
[2024-07-22] MEDS ORDERED: chlordiazePOXIDE HCL 10 MG CAPSULE PO ONE (05:00)
== END 2024-07-19 16:40 | disposition other institution (70) | DRG 775 ==
LOC: YASAS 06:59 → Y3N 10:29
PROVIDERS: ADMIT Surgery; ATTEND Allergy & Immunology
PROC: HZ2ZZZZ Detoxification Services for Substance Abuse Treatment (ICD-10-PCS; principal; 2024-07-17)
DX: F10.230 Alcohol dependence with withdrawal, uncomplicated (principal); R56.9 Unspecified convulsions
CPT/HCPCS: 80305; 81025; Q0162